=== PATIENT | female | born 1990 | race Caucasian/White ===

== ENCOUNTER 2017-11-26 07:55 | Day surgery (SDC) | payer BC ==
[2017-11-26 08:35] VITALS: O2SAT 100
[2017-11-26] MEDS ORDERED: Lactated Ringer's 1,000 ML IV ONE (09:00)
[2017-11-26] MEDS ORDERED: Midazolam 2 MG/2 ML VIAL ONE (09:01)
[2017-11-26] MEDS ORDERED: Propofol 10 mg/ml Inj (20 ML) ONE ×2 (09:01→09:14)
[2017-11-26 11:26] VITALS: BP 106/63; PULSE 70; RESP 16; TEMP 97
== END 2017-11-26 10:45 | disposition home or self-care (01) ==
LOC: C.ENDO 07:55
PROVIDERS: ATTEND Internal Medicine Gastroenterology
DX: R10.9 Unspecified abdominal pain (principal); K52.9 Noninfective gastroenteritis and colitis, unspecified; K29.70 Gastritis, unspecified, without bleeding; D12.5 Benign neoplasm of sigmoid colon
CPT/HCPCS: 43239; 45380; 45385; 84703; 88305; J2250; J2704; J7120